=== PATIENT | female | born 1985 | race Caucasian/White ===

== ENCOUNTER 2020-07-06 14:13 | Outpatient (REF) | payer OTHER, SELFPAY ==
[2020-07-06 14:41] LABS: COVID-19 Test Negative (Negative)
== END 2020-07-06 14:14 | disposition home or self-care (01) ==
LOC: HO.EMPCOV 14:13
PROVIDERS: PCP Nurse Practitioner Family; Visit Provider Internal Medicine
DX: Z20.822 Contact with and (suspected) exposure to COVID-19 (principal)
CPT/HCPCS: 36415; 87635; C9803

== ENCOUNTER → 2020-09-12 12:19 | Outpatient (BNVA) | payer OTHER, SELFPAY | PROVIDERS: Visit Provider Advanced Practice Midwife ==

== ENCOUNTER → 2020-09-15 13:02 | Outpatient (BNVA) | payer OTHER, SELFPAY | PROVIDERS: PCP Nurse Practitioner Family; Referring Provider Nurse Practitioner Family; Visit Provider Internal Medicine Endocrinology, Diabetes & Metabolism ==

== ENCOUNTER 2020-09-16 12:42 | Outpatient (REF) | payer OTHER, SELFPAY ==
[2020-09-16 14:48] LABS: Free T4 (Free Thyroxine) 1.07 ng/dL (0.71-1.85); Thyroid Stimulating Hormone 1.49 uIU/mL (0.32-4.0)
== END 2020-09-16 12:43 | disposition home or self-care (01) ==
LOC: HO.10HDL 12:42
PROVIDERS: Visit Provider Internal Medicine Endocrinology, Diabetes & Metabolism
DX: E03.8 Other specified hypothyroidism (principal); E06.3 Autoimmune thyroiditis
CPT/HCPCS: 36415; 84439; 84443

== ENCOUNTER 2021-04-28 13:26 | Outpatient (REF) | payer OTHER, SELFPAY ==
[2021-04-28 15:10] LABS: Free T4 (Free Thyroxine) 1.16 ng/dL (0.71-1.85); Thyroid Stimulating Hormone 0.87 uIU/mL (0.32-4.0)
== END 2021-04-28 13:27 | disposition home or self-care (01) ==
LOC: HO.LAB 13:26
PROVIDERS: PCP Nurse Practitioner Family; Visit Provider Nurse Practitioner Gerontology
DX: E03.8 Other specified hypothyroidism (principal); E06.3 Autoimmune thyroiditis; E66.09 Other obesity due to excess calories; Z68.32 Body mass index [BMI] 32.0-32.9, adult
CPT/HCPCS: 36415; 84439; 84443

== ENCOUNTER 2021-07-05 09:21 | Outpatient (REF) | payer OTHER, SELFPAY ==
[2021-07-05 11:07] LABS: Free T4 (Free Thyroxine) 1.18 ng/dL (0.71-1.85); HBS Num1 135.85 mIU/mL (0-7.99); HBsAGNum1 0.22 S/CO (0.00-0.99); Hepatitis A Antibody IgM 0.16 Index (0-0.79); Hepatitis B Surface Antigen Negative (Negative); Thyroid Stimulating Hormone 4.24 uIU/mL (0.32-4.0); ~Hepatitis A Antibody IgM Nonreactive (Nonreactive); ~Hepatitis B Surface Antibody REACTIVE (Nonreactive)
[2021-07-05 11:08] LABS: Hepatitis B Core Antibody Nonreactive (Nonreactive); ~HepC Num1 0.09 S/CO (0.00-0.79); ~Hepatitis C Antibody Nonreactive (Nonreactive)
[2021-07-06 11:11] LABS: Rubella IgG Antibody 5.79 Index
[2021-07-06 13:27] LABS: Rubeola IgG (Measles) >300.00 AU/mL
[2021-07-07 20:51] LABS: TS Negative Control Passed; TS Panel A 0; TS Panel B 0; TS Positive Control Passed; TSpotTB Negative (Negative)
== END 2021-07-05 09:22 | disposition home or self-care (01) ==
LOC: HO.LAB 09:21
PROVIDERS: Nurse Practitioner Gerontology; Visit Provider Nurse Practitioner Family
DX: Z01.84 Encounter for antibody response examination (principal); E03.8 Other specified hypothyroidism; E06.3 Autoimmune thyroiditis; Z28.3 Underimmunization status
CPT/HCPCS: 36415; 84439; 84443; 86481; 86704; 86706; 86709; 86735; 86762; 86765; 86787; 86803; 87340